=== PATIENT | female | born 1960 ===

== ENCOUNTER 2020-02-21 07:00 | Day surgery (SDC) | payer OTHER ==
[~2020-02-21 07:00] MED LIST: CALCIUM500 M1 PO; PROMETRIUM200 MG PO; SYNTHROID75 MCG PO; VITAMIN A8000 UNIT PO
== END 2020-02-21 16:20 | disposition home or self-care (01) ==
LOC: CIR.AMB 07:00
PROVIDERS: ATTEND Orthopaedic Surgery Hand Surgery
DX: M24.832 Other specific joint derangements of left wrist, not elsewhere classified (principal)